=== PATIENT | male | born 1935 ===

== ENCOUNTER 2021-01-05 19:30 | Outpatient (RCR) | payer MEDICARE ==
[2021-01-03 20:03] LABS: ALBUMIN 3.7 GM/DL (3.2-4.5); BILIRUBIN,DIRECT 0.2 MG/DL (0.0-0.3); BILIRUBIN,TOTAL 0.9 MG/DL (0.1-1.0); CALCIUM 9.4 MG/DL (8.5-10.1); CREATININE SERUM 1.34 MG/DL (0.60-1.30); POTASSIUM 4.2 MMOL/L (3.6-5.0); TOTAL PROTEIN 6.5 GM/DL (6.4-8.2)
== END 2021-02-23 | disposition home or self-care (01) ==
LOC: IHC 19:30 → EDSTATUS 01-07 16:10
PROVIDERS: ATTEND Family Medicine
DX: G31.1 Senile degeneration of brain, not elsewhere classified (principal); E46 Unspecified protein-calorie malnutrition; I51.9 Heart disease, unspecified
CPT/HCPCS: 80053; 82248; 83880; 84134